=== PATIENT | female | born 1965 | race Caucasian/White ===

== ENCOUNTER 2017-08-17 11:16 | Emergency (ER) | payer OTHER, SELFPAY ==
[2017-08-17 11:17] VITALS: BP 122/76; PULSE 66; RESP 18; TEMP 36.7; O2SAT 99; BMI 22.8
--- NOTE | 2017-08-17 11:31 | ED.RN ---
PT VERBALIZES PERMISSION TO CALL DAUGHTER.
[2017-08-17] MEDS: DiphenhydrAMINE 50 MG/ML Syringe 25 MG IV (11:41)
[2017-08-17] MEDS: 0.9% Normal Saline 1,000 ML 999 ML IV (11:41)
[2017-08-17] MEDS: proCHLORPERazine 10 MG/2 ML Vial IV (11:41)
[2017-08-17] MEDS: Ketorolac 30 MG/ML Syringe IV (11:42)
--- NOTE | 2017-08-17 11:58 | ED.VISSUMM ---
- ER Visit Summary Date of Service: 08/17/17 Chief Complaint: Headache History of Present Illness: The patient is a 52 F who presents with a headache. Started 9 hours ago. She has a history of migraine headaches and this feels similar to her previous migraines. She has nausea and double vision. She denies any falls. She tried Tylenol and aspirin at home without any relief. She denies a fever. No weakness of any of her extremities Physical Examination: Vital signs reviewed. HEENT exam unremarkable. Heart is regular rate and rhythm without murmurs. Lungs are clear to auscultation. Abdomen is soft and nontender. Extremities reveal no edema. Skin exam normal. Neurologic exam normal. Test Results: None indicated Emergency Department Course and Treatment: Patient was given IV fluids, Compazine, Benadryl and Toradol. Upon reevaluation she states her pain is resolved. She will be discharged home to use her home pain medications. Treatment Plan: [] Disposition: Discharge Impression: Migraine headache This note was generated with [employer] dictation software. It may contain incorrect words, spelling, and punctuation that were not noted in review of the chart prior to signing ED Disposition - Plan for ED Patient: Chief Complaint: Headache Referrals: Pratibha Olvera MD [Primary Care Provider] -
[2017-08-17 12:32] VITALS: BP 110/79; PULSE 67; RESP 16; O2SAT 99
--- NOTE | 2017-08-17 12:33 | ED.DEP ---
ED Disposition - Plan for ED Patient: Disposition: Home or Assisted Living Chief Complaint: Headache Instructions: ED Headache Migraine Referrals: Pratibha Olvera MD [Primary Care Provider] -
== END 2017-08-17 12:43 | disposition home or self-care (01) ==
PROVIDERS: Emergency Provider Emergency Medicine; Family Provider Family Medicine; PCP Family Medicine
DX: G43.909 Migraine, unspecified, not intractable, without status migrainosus (principal)
CPT/HCPCS: 96361; 96374; 96375; 99284; J7030; A4216

== ENCOUNTER → 2017-10-28 15:54 | Outpatient (CLI) | payer OTHER, SELFPAY ==
--- NOTE | 2017-10-28 15:58 | RAD_ITS ---
STUDY: X-RAY - RIGHT HAND, ATTENTION THUMB REASON FOR EXAM: Female, 52 years old. Pain after trauma. TECHNIQUE: . view(s) of the finger were obtained. COMPARISON: None. FINDINGS: Normal metacarpal head. Normal metacarpophalangeal joint. Normal proximal phalanx. Normal middle phalanx. Normal distal phalanx. Normal proximal interphalangeal joint. On the lateral view one millimeter mildly displaced avulsion fracture involving the palmar corner base of the distal phalanx. RAD/Finger(s) Min 2 Views IMPRESSION: Small avulsion fracture palmar aspect interphalangeal joint of the thumb. Electronically Signed: Yared Dodge MD at 7:45 EDT , Service support ,
== END ==
PROVIDERS: Family Provider Family Medicine; PCP Family Medicine; Visit Provider Family Medicine
DX: S62.521A Displaced fracture of distal phalanx of right thumb, initial encounter for closed fracture (principal); X58.XXXA Exposure to other specified factors, initial encounter
CPT/HCPCS: 73140

== ENCOUNTER → 2017-11-24 12:18 | Outpatient (CLI) | payer OTHER, SELFPAY ==
[2017-11-24 12:51] LABS: Absolute Lymphocyte Count 1.01 X10^3/ul (0.83-4.51); Basophil# 0.02 X10^3/uL; Basophil% 0.3 % (0-1); Eosinophil# 0.08 X10^3/uL; Eosinophils% 1.1 % (0-5); Hematocrit 42.3 % (37-47); Hemoglobin 13.9 g/dl (12.0-15.0); Lymphocyte # 1.01 X10^3/ul (4.0); Lymphocyte % 13.4 % (19-41); Mean Corp Hgb Conc 32.9 g/gl (32-36); Mean Corpuscular Hgb 29.3 pg (27.0-32.0); Mean Corpuscular Volume 89.1 fL (81-99); Mean Platelet Vol. 9.7 fl (6.2-12.0); Monocyte# 0.42 X10^3/uL; Monocyte% 5.6 % (0-10); Neutrophil % 79.2 % (47-70); Platelet Count 333 K/mm3 (150-450); RBC Distribution Width CV 13.2 % (11.6-14.6); RBC Distribution Width SD 42.4 fl (35.1-43.9); Red Blood Count 4.75 M/mm3 (4.2-5.4); White Blood Count 7.6 K/mm3 (4.4-11.0)
[2017-11-24 12:52] LABS: POSITIVE COUNT NO; POSITIVE DIFFERENTIAL NO; POSITIVE MORPHOLOGY NO
[2017-11-24 13:36] LABS: ALB/GLOB Ratio 1.1 RATIO (0.9-2.4); AST(SGOT) 11 U/L (15-37); Alanine Aminotransfer ALT/SGPT 21 U/L (13-56); Albumin, Serum 4.1 g/dL (3.2-5.0); Alkaline Phosphatase 79 U/L (45-117); Anion Gap 5 (5-15); BUN 9 mg/dL (7-18); BUN/Creat Ratio 10.1 RATIO (10-20); Calcium,Total 9.1 mg/dL (8.5-10.1); Chloride 106 mmol/L (98-107); Creatinine, Serum 0.89 mg/dL (0.55-1.02); EST Glomerular Filtration Rate 70 mL/min (>60); Est Glom Filt Rate - Afr Amer 85 mL/min (>60); Globulin 3.6 g/dL (2.2-4.2); Glucose 84 mg/dL (74-106); Potassium 3.7 mmol/L (3.5-5.1); Protein, Total 7.7 g/dL (6.4-8.2); Sodium Level 141 mmol/L (136-145)
== END ==
PROVIDERS: Family Provider Family Medicine; PCP Family Medicine; Visit Provider Family Medicine
DX: F32.9 Major depressive disorder, single episode, unspecified (principal)
CPT/HCPCS: 36415; 80053; 84443; 85025

== ENCOUNTER → 2018-02-13 16:24 | Outpatient (CLI) | payer OTHER, SELFPAY ==
[2018-02-19 13:21] LABS: HPV Reflexed? NOT INDICATED
== END ==
PROVIDERS: Family Provider Family Medicine; PCP Family Medicine; Visit Provider Family Medicine
DX: Z12.4 Encounter for screening for malignant neoplasm of cervix (principal)
CPT/HCPCS: 88175; G0145

== ENCOUNTER → 2018-04-20 10:44 | Outpatient (CLI) | payer OTHER, SELFPAY ==
--- NOTE | 2018-04-20 10:46 | BI_ITS ---
MAMMOGRAPHY - BILATERAL SCREENING REASON FOR EXAM: Female, 52 years old. Routine annual screening examination. PERTINENT HISTORY: Non-contributory. Remote right stereotactic breast biopsy. TECHNIQUE: Digital bilateral breast rula (3D mammographic acquisition) in the CC and MLO projections. 2-D mediolateral oblique (MLO) and craniocaudad (CC) views of both breasts were obtained. CAD: Full Field Digital Mammography with Computer Added Detection was performed. COMPARISON: Comparison is made with prior study dated March 13, 2017 and February 12, 2016. FINDINGS: Breast Composition: The breasts are heterogeneously dense, which may obscure small masses. There are no dominant masses or suspicious calcifications. There is a 6.3 mm well-defined nodule in the upper lateral portion of the left breast. This is increased in size since prior study. Prior ultrasound demonstrated this to be a cyst. A follow-up sonogram is recommended. No other significant abnormalities are identified. BI/SCREENING MAMM (CAD), BILAT IMPRESSION: Slight increase in size of the nodular density in the upper outer quadrant of the left breast as described. A repeat sonogram is recommended. ASSESSMENT CATEGORY: BIRADS Category 0: Incomplete. Need additional imaging evaluation. A letter regarding these results will be sent to the patient by the facility within 30 days. Approximately 10% of breast cancers are not detected by mammography. A normal mammogram should not delay biopsy of a clinically suspicious abnormality. [id number] Electronically Signed: Olegario Hoffman MD at 13:19 EST Tel [phone], Service support ,
== END ==
PROVIDERS: Family Provider Family Medicine; PCP Family Medicine; Referring Provider Family Medicine; Visit Provider Family Medicine
DX: Z12.31 Encounter for screening mammogram for malignant neoplasm of breast (principal); N63.21 Unspecified lump in the left breast, upper outer quadrant
CPT/HCPCS: 77063; 77067

== ENCOUNTER → 2018-04-22 08:01 | Outpatient (CLI) | payer OTHER, SELFPAY ==
--- NOTE | 2018-04-22 08:02 | US_ITS ---
STUDY: ULTRASOUND BREAST - LEFT REASON FOR EXAM: Female, 52 years old. Abnormal screening mammogram. TECHNIQUE: Axial and longitudinal images of the LEFT breast were performed with a high resolution ultrasound transducer. COMPARISON: Comparison is made with prior mammogram dated April 20, 2018 and prior ultrasound of the left breast dated February 15, 2016. FINDINGS: LEFT Breast: There is a 9 mm x 8 mm x 4 mm benign-appearing lymph node at the 1:00 position of the breast at 8 cm from nipple. There is a 5 mm x 4 mm x 4 mm cyst at the 3:00 position of the breast at 4 cm from the nipple. This is unchanged. US/Breast Limited Unilateral IMPRESSION: Stable cyst at the 3:00 position the breast at 4 cm from the nipple. Small lymph node ASSESSMENT CATEGORY: BIRADS Category 2: Benign. A letter regarding these results will be sent to the patient by the facility within 30 days. Electronically Signed: Olegario Hoffman MD at 9:20 EST Tel [phone], Service support ,
== END ==
PROVIDERS: Family Provider Family Medicine; PCP Family Medicine; Referring Provider Family Medicine; Visit Provider Family Medicine
DX: N63.20 Unspecified lump in the left breast, unspecified quadrant (principal)
CPT/HCPCS: 76642

== ENCOUNTER → 2018-06-01 11:03 | Outpatient (CLI) | payer OTHER, SELFPAY ==
[2018-06-03 10:58] LABS: Hep C Antibodies <0.1 s/co ratio (0.0-0.9)
== END ==
PROVIDERS: Family Provider Family Medicine; PCP Family Medicine; Visit Provider Family Medicine
DX: Z20.5 Contact with and (suspected) exposure to viral hepatitis (principal)
CPT/HCPCS: 36415; 86803

== ENCOUNTER → 2018-06-29 12:07 | Outpatient (CLI) | payer OTHER, SELFPAY ==
--- NOTE | 2018-06-29 12:10 | RAD_ITS ---
STUDY: X-RAY - LEFT FOOT CLINICAL: Female, 52 years old. Trauma. Pain TECHNIQUE: 3 view(s) of the foot. COMPARISON: None. FINDINGS: Normal talus, calcaneus, and tarsal bones. Normal visualized subtalar, talonavicular, calcaneocuboid, tarsal and tarsometatarsal articulations. There is nondisplaced fracture of the base of the fifth metatarsal. Normal metatarsophalangeal joint of the great toe. Normal tibial and fibular sesamoid bones. Normal interphalangeal joint of the great toe. Normal phalanges of the great toe. Normal second through fifth metatarsophalangeal joints. Normal interphalangeal joints and phalanges of the lesser toes. The soft tissue structures are unremarkable. RAD/Foot min 3 Views IMPRESSION: There is nondisplaced fracture of the base of the fifth metatarsal. Electronically Signed: Adriana Navarro, at 13:16 EDT Tel , Service support ,
== END ==
PROVIDERS: Family Provider Family Medicine; PCP Family Medicine; Referring Provider Family Medicine; Visit Provider Family Medicine
DX: S92.355A Nondisplaced fracture of fifth metatarsal bone, left foot, initial encounter for closed fracture (principal); X58.XXXA Exposure to other specified factors, initial encounter
CPT/HCPCS: 73630

== ENCOUNTER → 2018-07-27 10:52 | Outpatient (CLI) | payer OTHER, SELFPAY ==
--- NOTE | 2018-07-27 10:55 | RAD_ITS ---
STUDY: X-RAY - LEFT FOOT CLINICAL: Female, 53 years old. Follow-up of metatarsal fracture TECHNIQUE: 3 view(s) of the foot. COMPARISON: June 29, 2018 left foot x-ray FINDINGS: There is demineralization of the rear and midfoot bones. Normal visualized subtalar, talonavicular, calcaneocuboid, tarsal and tarsometatarsal articulations. There is demineralization of the metatarsi. There is a nondisplaced fracture at the base of the fifth metatarsal with minimal evidence of interval healing. There is still visualized soft tissue edema. Normal metatarsophalangeal joint of the great toe. Normal tibial and fibular sesamoid bones. Normal interphalangeal joint of the great toe. Normal phalanges of the great toe. Normal second through fifth metatarsophalangeal joints. Normal interphalangeal joints and phalanges of the lesser toes. RAD/Foot min 3 Views IMPRESSION: Persistent fracture of the base of the first metatarsal. No significant evidence of interval healing. Electronically Signed: Caridad Flanagan MD at 18:04 EDT Tel , Service support ,
== END ==
PROVIDERS: Family Provider Family Medicine; PCP Family Medicine; Referring Provider Family Medicine; Visit Provider Family Medicine
DX: S92.315A Nondisplaced fracture of first metatarsal bone, left foot, initial encounter for closed fracture (principal)
CPT/HCPCS: 73630

== ENCOUNTER → 2019-04-26 06:51 | Outpatient (CLI) | payer OTHER, SELFPAY ==
--- NOTE | 2019-04-26 06:53 | BI_ITS ---
MAMMOGRAPHY - BILATERAL SCREENING REASON FOR EXAM: Female, 53 years old. Routine annual screening examination. PERTINENT HISTORY: Non-contributory. TECHNIQUE: Digital bilateral breast katherin (3D mammographic acquisition) in the CC and MLO projections. 2-D mediolateral oblique (MLO) and craniocaudad (CC) views of both breasts were obtained. CAD: Full Field Digital Mammography with Computer Added Detection was performed. COMPARISON: Comparison is made with prior study dated April 20, 2018 and March 13, 2017. FINDINGS: Breast Composition: The breasts are heterogeneously dense, which may obscure small masses. There are no dominant masses or suspicious calcifications. Interstitial clip marker is seen in the upper lateral aspect of the right breast from prior biopsy. Stable well-defined nodular density in the upper lateral portion of the left breast. This was demonstrated to be a cyst on prior sonogram. No other significant abnormalities are identified. There has been no significant change since the prior study. BI/SCREEN MAMM (CAD) W/KATHERIN BILAT IMPRESSION: Stable bilateral screening mammogram. Yearly follow-up mammogram recommended. (A) ASSESSMENT CATEGORY: BIRADS Category 2: Benign. A letter regarding these results will be sent to the patient by the facility within 30 days. Approximately 10% of breast cancers are not detected by mammography. A normal mammogram should not delay biopsy of a clinically suspicious abnormality. [id number] Electronically Signed: Olegario Hoffman, at 9:31 EST , Service support ,
== END ==
PROVIDERS: Family Provider Family Medicine; PCP Family Medicine; Referring Provider Family Medicine; Visit Provider Family Medicine
DX: Z12.31 Encounter for screening mammogram for malignant neoplasm of breast (principal)
CPT/HCPCS: 77063; 77067

== ENCOUNTER → 2020-06-23 07:34 | Outpatient (CLI) | payer OTHER, SELFPAY ==
--- NOTE | 2020-06-23 07:52 | BI_ITS ---
MAMMOGRAPHY - BILATERAL SCREENING REASON FOR EXAM: Female, 54 years old. Routine annual screening examination. PERTINENT HISTORY: Non-contributory. History of prior right stereotactic breast biopsy and ultrasound-guided biopsy in the left breast. TECHNIQUE: Digital bilateral breast katherin (3D mammographic acquisition) in the CC and MLO projections. 2-D mediolateral oblique (MLO) and craniocaudad (CC) views of both breasts were obtained. CAD: Full Field Digital Mammography with Computer Added Detection was performed. COMPARISON: Comparison is made with prior study dated 04/26/2019 and 04/20/2018. FINDINGS: Breast Composition: The breasts are heterogeneously dense, which may obscure small masses. There are no dominant masses or suspicious calcifications. Once again, a tissue clip marker is seen in the upper lateral aspect of the right breast. Stable 7 mm x 4.4 mm well-defined nodule in the upper lateral aspect of the left breast. No other significant abnormalities are identified. There has been no significant change since the prior study. BI/SCRN MAMM (CAD)W/KATHERIN BILAT IMPRESSION: Stable bilateral screening mammogram. Yearly follow-up mammogram recommended. (A) ASSESSMENT CATEGORY: BIRADS Category 2: Benign. A letter regarding these results will be sent to the patient by the facility within 30 days. Approximately 10% of breast cancers are not detected by mammography. A normal mammogram should not delay biopsy of a clinically suspicious abnormality. [id number] Electronically Signed: Olegario Hoffman MD at 13:27 EDT , Service support ,
== END ==
PROVIDERS: PCP Family Medicine; Referring Provider Family Medicine; Visit Provider Family Medicine
DX: Z12.31 Encounter for screening mammogram for malignant neoplasm of breast (principal)
CPT/HCPCS: 77063; 77067

== ENCOUNTER → 2021-01-03 | Outpatient (CLI) | payer OTHER, SELFPAY ==
[2021-01-09 16:12] LABS: HPV Reflexed? NOT INDICATED
== END | disposition home or self-care (01) ==
LOC: LABSPEC 11:00
PROVIDERS: PCP Family Medicine; Referring Provider Family Medicine; Visit Provider Family Medicine
DX: Z12.4 Encounter for screening for malignant neoplasm of cervix (principal)
CPT/HCPCS: 88175; G0145

== ENCOUNTER → 2022-03-11 | Outpatient (CLI) | payer OTHER, SELFPAY ==
--- NOTE | 2022-03-11 15:23 | BI_ITS ---
MAMMOGRAPHY - BILATERAL SCREENING REASON FOR EXAM: Female, 56 years old. Routine annual screening examination. PERTINENT HISTORY: Non-contributory. History of prior right stereotactic breast biopsy. TECHNIQUE: Digital bilateral breast katherin (3D mammographic acquisition) in the CC and MLO projections. 2-D mediolateral oblique (MLO) and craniocaudad (CC) views of both breasts were obtained. CAD: Full Field Digital Mammography with Computer Added Detection was performed. COMPARISON: Comparison is made with prior examination 06/23/2020 and 04/26/2019. FINDINGS: Breast Composition: The breasts are heterogeneously dense, which may obscure small masses. There are no dominant masses or suspicious calcifications. A tissue clip marker is once again seen in the upper lateral deep portion of the right breast. Stable 7 mm x 4.4 mm well-defined nodule in the deep central lateral aspect of the left breast. This most likely represents a small intramammary lymph node. No other significant abnormalities are identified. There has been no significant change since the prior study. BI/SCRN MAMM (CAD)W/KATHERIN BILAT IMPRESSION: Stable bilateral screening mammogram. Yearly follow-up mammogram recommended. (A) ASSESSMENT CATEGORY: BIRADS Category 2: Benign. A letter regarding these results will be sent to the patient by the facility within 30 days. Approximately 10% of breast cancers are not detected by mammography. A normal mammogram should not delay biopsy of a clinically suspicious abnormality. [id number] Electronically Signed: Olegario Hoffman MD at 8:32 EST ,
== END | disposition home or self-care (01) ==
LOC: OPBI 15:21
PROVIDERS: PCP Family Medicine; Visit Provider Family Medicine
DX: Z12.31 Encounter for screening mammogram for malignant neoplasm of breast (principal)
CPT/HCPCS: 77063; 77067

== ENCOUNTER → 2022-07-30 | Outpatient (CLI) | payer OTHER, SELFPAY ==
--- NOTE | 2022-07-30 15:11 | US_ITS ---
STUDY: ULTRASOUND TRANSVAGINAL CLINICAL: Female, 57 years old. POST MENOPAUSAL BLEEDING TECHNIQUE: Transvaginal COMPARISON: None. FINDINGS: Normal uterine size measuring 7.1 cm in maximal craniocaudal dimension. There are 2 small fibroids present. Larger measures 1.1 x 0.9 x 0.9 cm smaller measures 0.3 x 0.3 x 0.2 cm.. Uterus is retroflexed Cv Rn notes a complex 1.2 x 1.2 x 0.8 cm nodule at the junction of the vagina and edge of the fornix. This may represent a small uterine polyp. Normal endometrial thickness measuring 3.3 mm. There are no endometrial masses, and there is no fluid in the endometrial cavity. Normal uterine cervix. Normal right ovary, measuring 2.7 x 1.4 x 1.4 cm. There are multiple follicles without a dominant cyst. Normal left ovary, measuring 2.7 x 2.5 x 1.5 cm. There is a partially calcified 1.9 cm cyst. There are some dilated serpiginous vessels in the left adnexal region. There is no free fluid in the pelvis. Bladder is incompletely distended US/Transvaginal Non- IMPRESSION: Endometrium is sonographically normal for age 1 small uterine fibroids Possible polyp noted at the right lateral fornix at its junction with the vagina measuring 1.2 x 1.2 x 0.8 cm. This polyp has some vascularity and may be the source of the bleeding. 1.9 cm left adnexal cyst. Follow-up ultrasound in 6-8 weeks recommended to assess for stability or resolution Electronically Signed: Gerry Trujillo MD at 7:47 EDT ,
== END | disposition home or self-care (01) ==
LOC: US 15:09
PROVIDERS: PCP Family Medicine; Referring Provider Family Medicine; Visit Provider Family Medicine
DX: N95.0 Postmenopausal bleeding (principal); D25.9 Leiomyoma of uterus, unspecified; N83.202 Unspecified ovarian cyst, left side
CPT/HCPCS: 76830

== ENCOUNTER → 2022-08-06 | Outpatient (CLI) | payer OTHER, SELFPAY ==
--- NOTE | 2022-08-06 | EMB_PTH ---
PATIENT: WANDA QUARLES [facility] U#:[id number] AGE/SX: 57/F ROOM: RE08/06/[address]: ADAM Britton : 1965 BED: DIS: 08/06/2022 SPEC #: [id number] RECD: 08/06/22 16:21 STATUS: CHRISTIAN REGINA #: [id number] REINALDO: 08/06/22 00:[address]: Suerkha Padron NP DEPT: SURGICAL PATHOLOGY RECD BY: Tomeka Cornejo ENTERED: 08/07/22 08:16 SP TYPE: ENDOM BX/C SADIA DR: Dr. Pratibha Olvera MD Tissues: Endometrium, NOS Procedures: Surgery Specimen Level IV HEADER OPERATION: Endometrial biopsy PRE-OP DIAGNOSIS: Postmenopausal bleeding TISSUE SUBMITTED: Endometrial tissue MICROSCOPIC DIAGNOSIS Endometrial biopsy: Fragments of inactive endometrium. See comment. ANT:partha 08/08/2022 COMMENT Clinical correlation and appropriate follow up are necessary. MICROSCOPIC DESCRIPTION Slides are reviewed. GROSS DESCRIPTION Received is one container labeled with the patient's name and not further designated. The specimen consists of multiple irregular fragments of light cabello soft tissue that in aggregate measure 2.5 x 1.0 x <0.1 cm. The specimen is totally submitted in one cassette. / AM:partha 08/07/2022 TC:4 CPT: 54303
== END | disposition home or self-care (01) ==
LOC: LABSPEC 16:28
PROVIDERS: PCP Family Medicine; Visit Provider Nurse Practitioner Women's Health
DX: N95.0 Postmenopausal bleeding (principal)
CPT/HCPCS: 88305

== ENCOUNTER → 2023-03-21 | Outpatient (CLI) | payer OTHER, SELFPAY ==
--- NOTE | 2023-03-21 12:34 | BI_ITS ---
MAMMOGRAPHY - BILATERAL SCREENING REASON FOR EXAM: Female, 57 years old. Routine annual screening examination. PERTINENT HISTORY: Non-contributory. Remote right stereotactic breast biopsy. TECHNIQUE: Digital bilateral breast katherin (3D mammographic acquisition) in the CC and MLO projections. 2-D mediolateral oblique (MLO) and craniocaudad (CC) views of both breasts were obtained. CAD: Full Field Digital Mammography with Computer Added Detection was performed. COMPARISON: Comparison is made with prior study dated March 11, 2022 and June 23, 2020. FINDINGS: Breast Composition: The breasts are heterogeneously dense, which may obscure small masses. There are no dominant masses or suspicious calcifications. Stable 7 mm x 4 mm well-defined nodule in the deep central lateral aspect of the left breast. A tissue clip marker is seen in the upper lateral aspect of the right breast. No other significant abnormalities are identified. There has been no significant change since the prior study. BI/SCRN MAMM (CAD)W/KATHERIN BILAT IMPRESSION: Stable bilateral screening mammogram. Yearly follow-up mammogram recommended. (A) ASSESSMENT CATEGORY: BIRADS Category 2: Benign. A letter regarding these results will be sent to the patient by the facility within 30 days. Approximately 10% of breast cancers are not detected by mammography. A normal mammogram should not delay biopsy of a clinically suspicious abnormality. [id number] Electronically Signed: Olegario Hoffman MD at 14:10 EST ,
== END | disposition home or self-care (01) ==
LOC: OPBI 12:32
PROVIDERS: PCP Family Medicine; Referring Provider Family Medicine; Visit Provider Family Medicine
DX: Z12.31 Encounter for screening mammogram for malignant neoplasm of breast (principal)
CPT/HCPCS: 77063; 77067

== ENCOUNTER → 2024-03-22 | Outpatient (CLI) | payer OTHER, SELFPAY ==
--- NOTE | 2024-03-22 12:48 | BI_ITS ---
MAMMOGRAPHY - BILATERAL SCREENING REASON FOR EXAM: Female, 58 years old. Routine annual screening examination. PERTINENT HISTORY: Non-contributory. Remote right stereotactic breast biopsy. TECHNIQUE: Digital bilateral breast katherin (3D mammographic acquisition) in the CC and MLO projections. 2-D mediolateral oblique (MLO) and craniocaudad (CC) views of both breasts were obtained. CAD: Full Field Digital Mammography with Computer Added Detection was performed. COMPARISON: Comparison is made with prior study March 21, 2023 and March 11, 2022. FINDINGS: Breast Composition: The breasts are heterogeneously dense, which may obscure small masses. There are no dominant masses or suspicious calcifications. A tissue clip marker is once again seen in the upper lateral aspect of the right breast. Stable 7 mm x 4 mm well-defined nodule in the deep central lateral aspect of the left breast. This is suggestive of a small lymph node. No other significant abnormalities are identified. There has been no significant change since the prior study. BI/SCRN MAMM (CAD)W/KATHERIN BILAT IMPRESSION: Stable bilateral screening mammogram. Yearly follow-up mammogram recommended. (A) ASSESSMENT CATEGORY: BIRADS Category 2: Benign. A letter regarding these results will be sent to the patient by the facility within 30 days. Approximately 10% of breast cancers are not detected by mammography. A normal mammogram should not delay biopsy of a clinically suspicious abnormality. [id number] Electronically Signed: Olegario Hoffman MD at 13:58 EST ,
== END | disposition home or self-care (01) ==
LOC: OPBI 12:47
PROVIDERS: PCP Family Medicine; Referring Provider Family Medicine; Visit Provider Family Medicine
DX: Z12.31 Encounter for screening mammogram for malignant neoplasm of breast (principal)
CPT/HCPCS: 77063; 77067

== ENCOUNTER → 2024-03-26 | Outpatient (CLI) | payer OTHER, SELFPAY ==
--- NOTE | 2024-03-26 09:57 | RAD_ITS ---
EXAM: XR SINUSES/PARANASAL COMPLETE, 3 OR MORE VIEWS CLINICAL INDICATION: sinus pain TECHNIQUE: Frontal, lateral and Boyd views of the sinuses and paranasal structures. COMPARISON: No relevant prior studies available. FINDINGS: BONES/JOINTS: Unremarkable. The regional bones are grossly intact. SINUSES: Unremarkable. No significant mucosal thickening. There are no air-fluid levels. RAD/Sinuses min 3 Views IMPRESSION: Negative sinus series. Electronically Signed: Ramon Becerra MD at 11:55 EST ,
== END | disposition home or self-care (01) ==
LOC: MTRAD 09:57
PROVIDERS: PCP Family Medicine; Referring Provider Family Medicine; Visit Provider Family Medicine
DX: J32.9 Chronic sinusitis, unspecified (principal)
CPT/HCPCS: 70220